=== PATIENT | female | born 1995 | race Two or more races ===

== ENCOUNTER 2022-06-24 03:16 | Emergency (ER) | payer MEDICAID, OTHER ==
[~2022-06-24] VITALS: Ht 154.9 cm; Wt 49.0 kg
--- NOTE | 2022-06-24 05:43 | NUR ---
BIBFAMILY FROM HOME C/O LAC TO R TEMPORAL SCALP & MULTIPLE ABRASIONS TO LUE L HAND FROM CAT. ADMITS TO FAINTING. TDAP UNKNOWN. -BLOOD THINNERS. A/OX4. TOLERATING R/A WELL WITH NO RESP DISTRESS. SAFETY MEASURES IN PLACE.
--- NOTE | 2022-06-24 06:09 | NUR ---
DR ERNESTO CASANOVA AT PT'S BEDSIDE FOR EVAL
--- NOTE | 2022-06-24 06:23 | NUR ---
AT PT'S BEDSIDE FOR WOUND CARE TO LAC
[2022-06-24] MEDS ORDERED: TDAP [DIPH/PERTUSSIS/TET] 0.5 ML VIAL IM ONE ×2 (07:00→07:01)
[2022-06-24] MEDS ORDERED: HYDROCODONE/APAP 5/325MG TABLET PO ONE (07:00)
[2022-06-24] MEDS ORDERED: AMOX/CLAVULANATE 875 MG TABLET PO ONE (07:00)
[2022-06-24] MEDS ORDERED: HYDROCODONE/APAP 5/325MG TABLET ONE (07:02)
--- NOTE | 2022-06-24 07:13 | NUR ---
DIRECTOR ENVIRONMENTAL AT PT'S BEDSIDE
--- NOTE | 2022-06-24 07:46 | NUR ---
Patient AOx4, able to express her concerns. Discussed plan of care, patient verbalized agreement. All safety precautions taken.
[2022-06-24] MEDS ORDERED: HYDR-3980 PO (07:55)
[2022-06-24] MEDS ORDERED: AMOX-430 PO (07:55)
[2022-06-24 08:13] VITALS: BP 99/58
== END 2022-06-24 08:15 | disposition home or self-care (01) ==
LOC: ER 03:22
DX: S01.01XA Laceration without foreign body of scalp, initial encounter (principal); S01.311A Laceration without foreign body of right ear, initial encounter; S61.432A Puncture wound without foreign body of left hand, initial encounter; W55.03XA Scratched by cat, initial encounter; Y93.89 Activity, other specified; Y92.89 Other specified places as the place of occurrence of the external cause; Y99.8 Other external cause status
CPT/HCPCS: 99283; 90471; 90715; 73130; A6403

== ENCOUNTER 2022-07-25 15:17 | Emergency (ER) | payer MEDICAID ==
[~2022-07-25] VITALS: Ht 154.9 cm; Wt 47.2 kg
[~2022-07-25 15:17] MED LIST: AMOX-430 PO; HYDR-3980 PO
--- NOTE | 2022-07-25 15:31 | NUR ---
visit for staple removal. scalp laceration repaired 3 weeks ago
--- NOTE | 2022-07-25 15:35 | NUR ---
STAPLE REMOVAL DONE BY
--- NOTE | 2022-07-25 15:40 | NUR ---
AT PATIENT FOR EVAL
--- NOTE | 2022-07-25 15:45 | NUR ---
Patient discharged to home in stable condition. Written and verbal after care instructions given. Patient verbalizes understanding of instruction.
[2022-07-25 15:50] VITALS: BP 121/78
== END 2022-07-25 15:45 | disposition home or self-care (01) ==
LOC: ER 15:24
DX: Z48.02 Encounter for removal of sutures (principal)